=== PATIENT | female | born 1990 | race American Indian/Alaskan Native ===

== ENCOUNTER 2018-09-21 18:11 | Emergency (ER) | payer OTHER ==
[2018-09-21 18:16] VITALS: RESP 18; O2SAT 100; BMI 35.4
[2018-09-21 19:12] LABS: ARTERIAL BLOOD GAS HCO3 25.3 mmol/L (21-28); ARTERIAL BLOOD GAS HEMOGLOBIN 12.1 g/dL (11.7-17.4); ARTERIAL BLOOD GAS O2 CAPACITY 16.7 mL/dl (16-24); ARTERIAL BLOOD GAS O2 CONTENT 16.3 ML/dl (15-23); ARTERIAL BLOOD GAS O2 SAT 97.7 % (95-98); ARTERIAL BLOOD GAS PCO2 39 mm/Hg (35-45); ARTERIAL BLOOD GAS PH 7.42 (7.35-7.45); ARTERIAL BLOOD GAS TCO2 26.5 mmol.L (22-28)
--- NOTE | 2018-09-21 19:15 | ED PDOC ---
Arrival/HPI - General Chief Complaint: Medical Clearance Time Seen by Provider: 09/21/18 18:15 Historian: Patient - History of Present Illness Narrative History of Present Illness (Text): 09/21/18 19:10 28 y/o female with no significant PMH presents to the Emergency department for evaluation after possible carbon monoxide exposure yesterday. 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 Pt is concerned about possible carbon monoxide exposure. States she had slight nausea, lightheadedness, and mild frontal headache that resolved this morning. Also requesting to be tested for . Denies fever, chills, SOB, chest pain, vomiting, vision changes, headache, abdominal pain, back pain, or any other associated symptoms. Past Medical History - Provider Review Nursing Documentation Reviewed: Yes - Cardiac Hx Cardiac Disorders: No - Pulmonary Hx Respiratory Disorders: Yes Hx Asthma: Yes - Neurological Hx Neurological Disorder: No - HEENT Hx HEENT Disorder: No - Renal Hx Renal Disorder: No - Endocrine/Metabolic Hx Endocrine Disorders: No - Hematological/Oncological Hx Blood Disorders: No - Integumentary Hx Dermatological Disorder: No - Musculoskeletal/Rheumatological Hx Musculoskeletal Disorders: No - Gastrointestinal Hx Gastrointestinal Disorders: No - Genitourinary/Gynecological Hx Genitourinary Disorders: No - Psychiatric Hx Psychophysiologic Disorder: No Hx Substance Use: No - Anesthesia Hx Anesthesia: No Family/Social History - Physician Review Nursing Documentation Reviewed: Yes Family/Social History: No Known Family HX Smoking Status: Never Smoked Hx Alcohol Use: Yes Frequency of alcohol use: Socially Hx Substance Use: No Allergies/Home Meds Allergies/Adverse Reactions: Allergies egg Allergy (Verified 09/21/18 18:36) RASH FISH Allergy (Verified 09/21/18 18:36) RASH nut - unspecified Allergy (Verified 09/21/18 18:36) RASH Review of Systems - Review of Systems Constitutional: Normal. absent: Fevers Eyes: Normal. absent: Vision Changes ENT: Normal. absent: Sore Throat, Sinus Congestion Respiratory: Normal. absent: SOB, Cough Cardiovascular: Normal. absent: Chest Pain, Palpitations, Syncope Gastrointestinal: Normal. absent: Abdominal Pain, Nausea, Vomiting Musculoskeletal: Normal. absent: Back Pain, Neck Pain Skin: Normal. absent: Rash Neurological: Normal. absent: Headache, Dizziness Physical Exam Vital Signs Reviewed: Yes Vital Signs Temp Pulse Resp BP Pulse Ox 09/21/18 18:15 98.5 F 92 H 18 107/63 100 Temperature: Afebrile Blood Pressure: Normal Pulse: Regular Respiratory Rate: Normal Appearance: Positive for: Well-Appearing, Non-Toxic, Comfortable Pain Distress: None Mental Status: Positive for: Alert and Oriented X 3 - Systems Exam Head: Present: Atraumatic, Normocephalic Pupils: Present: PERRL Extroacular Muscles: Present: EOMI Conjunctiva: Present: Normal Mouth: Present: Moist Mucous Membranes Neck: Present: Normal Range of Motion. No: Meningeal Signs Respiratory/Chest: Present: Clear to Auscultation, Good Air Exchange. No: Respiratory Distress, Accessory Muscle Use Cardiovascular: Present: Regular Rate and Rhythm, Normal S1, S2, Peripheal Pulses Present Abdomen: No: Tenderness Upper Extremity: Present: Normal Inspection, Normal ROM Lower Extremity: Present: Normal Inspection, Normal ROM Neurological: Present: GCS=15, Speech Normal, Motor Func Grossly Intact, Normal Sensory Function, Gait Normal Skin: Present: Warm, Dry, Normal Color. No: Rashes Psychiatric: Present: Alert, Oriented x 3, Normal Insight, Normal Concentration, Normal Affect, Normal Mood Medical Decision Making ED Course and Treatment: Initial Plan: * ABG * POC preg 19:29 ABG reviewed, carboxyhemoglobin is normal. POC preg negative. Case reviewed with ED attending Dr. Moser, who agrees with plan of care. Patient to be discharged home with PMD followup. Diagnostic testing results and plan of care discussed with patient. Strict instructions given regarding importance of followup, and signs/symptoms to return to ER including vomiting, worsening headache, chest pain, SOB, or any other new/worsening symptoms. Pt verbalized understanding of discussion. Patient is A&Ox3, ambulating with steady gait, with vital signs stable for discharge. - Lab Interpretations Lab Results: Lab Results 09/21/18 19:00: pCO2 39, pO2 86.0, HCO3 25.3, ABG pH 7.42, ABG Total CO2 26.5, ABG O2 Saturation 97.7, ABG O2 Content 16.3, ABG Base Excess 0.8, ABG Hemoglobin 12.1, ABG Carboxyhemoglobin 1.2, POC ABG HHb (Measured) 2.3, ABG Methemoglobin 0.9, ABG O2 Capacity 16.7, Hgb O2 Saturation 95.6, FiO2 21.0 I have reviewed the lab results: Yes Disposition/Present on Arrival - Present on Arrival Any Indicators Present on Arrival: No History of DVT/PE: No History of Uncontrolled Diabetes: No Urinary Catheter: No History of Decub. Ulcer: No History Surgical Site Infection Following: None - Disposition Have Diagnosis and Disposition been Completed?: No Diagnosis: Encounter for laboratory test, Exposure to carbon monoxide Disposition: HOME/ ROUTINE Disposition Time: 19:31 Condition: STABLE Discharge Instructions (ExitCare): Carbon Monoxide Poisoning, Carboxyhemoglobin Blood Test Additional Instructions: Followup with PMD within 2 days Return to ER with any new/worsening symptoms Referrals: Priscila Coon MD [Medical Doctor] - Follow up with primary [facility] [place] [Outside] - Follow up with primary Forms: [email or web address] (B[place]hi), WORK NOTE
[2018-09-21 20:12] VITALS: BP 132/78; PULSE 88; TEMP 98
== END 2018-09-21 20:18 | disposition home or self-care (01) ==
LOC: ED 18:11
DX: Z77.29 Contact with and (suspected) exposure to other hazardous substances (principal)